=== PATIENT | female | born 1990 | race Caucasian/White ===

== ENCOUNTER 2016-08-09 07:22 | Emergency (ER) | payer OTHER ==
[~2016-08-09] VITALS: Ht 157.5 cm; Wt 72.6 kg
[2016-08-09] MEDS ORDERED: SPRINTEC 28 DA1 EACH PO (07:59)
[2016-08-09] MEDS ORDERED: ZOLOFT100 M1 PO (07:59)
--- NOTE | 2016-08-09 08:27 | ED HAND/WRIST INJURY COMPLAINT ---
History of Present Illness General Chief Complaint: Hand or Wrist Injury Stated Complaint: " PER PT LT WRIST INJURED, WORKERS COMP" Source: patient Exam Limitations: no limitations Vital Signs & Intake/Output Vital Signs & Intake/Output Vital Signs Date Time Temp Pulse Resp B/P B/P Pulse O2 O2 Flow FiO2 Mean Ox Delivery Rate 08/10 911 97.0 80 18 115/72 96 Room Air 08/09 07 97.2 75 20 122/77 98 Room Air Allergies Coded Allergies: NO KNOWN ALLERGIES (08/20/13) Reconcile Medications Norgestimate-Ethinyl Estradiol (Sprintec 28 Day Tablet) 0.25 MG-35 MCG TABLET 1 TAB PO DAILY BC (Reported) Sertraline HCl (Zoloft) 100 MG TABLET 1 TAB PO DAILY MENTAL HEALTH (Reported) Triage Note: PT TO ED C/O LEFT WRIST PAIN. 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 C/O BURNING PAIN TO LEFT WRIST. Triage Nurses Notes Reviewed? yes Occurred: just prior to arrival Duration: minute(s):, constant, continues in ED Timing: recent history Injury Environment: home Pain/Injury Location: Left: Wrist. Method of Injury: unknown No Modifying Factors: none : No Patient currently breastfeeds: No HPI: 26-year-old female comes into emergency room for further evaluation of left wrist pain. 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 The patient went to extubate is a herself. The patient went to grab him from stopping and he grabbed onto her left wrist. Patient reports that she now feels pain in the left wrist. Denies any falls or trauma. Patient has full range of motion. Denies any elbow injury. Denies any other associated symptoms. (VINOD STEARNS) Past History Travel History Traveled to [place] past 21 day No Medical History Any Pertinent Medical History? none Surgical History Surgical History: non-contributory Psychosocial History What is your primary language Tongan Tobacco Use: Never used ETOH Use: denies use Illicit Drug Use: denies illicit drug use Family History Hx Contributory? No (VINOD STEARNS) Review of Systems Review of Systems Constitutional: Reports: no symptoms. EENTM: Reports: no symptoms. Respiratory: Reports: no symptoms. Cardiovascular: Reports: no symptoms. GI: Reports: no symptoms. Genitourinary: Reports: no symptoms. Musculoskeletal: Reports: see HPI. Skin: Reports: no symptoms. Neurological/Psychological: Reports: no symptoms. Hematologic/Endocrine: Reports: no symptoms. Immunologic/Allergic: Reports: no symptoms. All Other Systems: Reviewed and Negative (VINOD STEARNS) Physical Exam Physical Exam General Appearance: well developed/nourished, mild distress Head: atraumatic Eyes: Bilateral: normal appearance. Ears, Nose, Throat: normal ENT inspection, hearing grossly normal Neck: normal inspection Cardiovascular/Respiratory: no respiratory distress Back: normal inspection Wrist Left: normal range of motion, soft tissue tenderness, no bruising,point tenderness over the radius Hand Left: normal inspection, normal range of motion Hand Right: normal inspection Neurologic/Tendon: normal sensation, normal motor functions, normal tendon functions, responds to pain, no evidence tendon injury, no pulse deficit Skin: intact, normal color, warm/dry Lymphatic: no anterior cervical beth (VINOD STEARNS) Progress Differential Diagnosis: cellulitis, contusion, compartment syndrome, dislocation , felon, fracture, gout, septic arthritis, sprain, tenosynovitis Plan of Care: Orders Procedure Date/time Status Durable Medical Equipment 08/09 914 Active Diagnostic Imaging: Viewed by Me: Radiology Read. Discussed w/RAD: Radiology Read. Radiology Impression: SERVICE DATE: 08/09/16 EXAM TYPE: RAD - XRY-WRIST COMPLETE-LEFT EXAMINATION: XR WRIST, LEFT CLINICAL INFORMATION: Pain over left wrist. COMPARISON: None TECHNIQUE: Left wrist, 4 views FINDINGS: The bones and soft tissues are normal. No fracture. Alignment is anatomic with normal joint spaces. No erosions or abnormal soft tissue calcifications. IMPRESSION: Normal left wrist. DICTATED BY: ISSAC BRAND MD DATE/TIME DICTATED:08/09/16841 SPOOLING SUPERVISOR:SMOOTH DATE/TIME TRANSCRIBED:08/09/16841 CONFIDENTIAL, DO NOT COPY WITHOUT APPROPRIATE AUTHORIZATION. (VINOD STEARNS) Departure Departure Disposition: HOME OR SELF CARE Condition: Stable Clinical Impression Primary Impression: Contusion of left wrist Referrals: LUCIA THORNE,ALEXANDRO Faustin (PCP/Family) Additional Instructions: Ice. Rest. Motrin. Follow-up with occupational medicine. Return if any concerns worsening symptoms. Limited weight lifting over the next 24 hours. Please go over all results of today's visit with your primary care doctor. Contact your primary care doctor to let them know you were here in the emergency room. There may be nonspecific findings which may not be related to your visit today here in the emergency room but may require further evaluation and chronic monitoring by your primary care doctor. If you had a laceration today the chance of foreign body always remains. You should follow-up with your primary care doctor for recheck in 3-5 days for a wound check. If you had an x-ray done there is a chance that a fracture could have been missed on initial read and you should follow-up with your primary care doctor for repeat x-rays if symptoms persist. If your blood pressure was elevated here in the emergency room please have rechecked by her primary care doctor within the next 48 hours by your primary care doctor. If you were prescribed a narcotic here in the emergency room or any type of controlled substances you're not allowed to drive while taking this medication or operate any type of heavy machinery. Narcotics can make you feel lightheaded dizziness nausea and can cause constipation. You may need to picker machine operator a stool softener. Thank you for choosing [facility] emergency room. Please return to the emergency room immediately if you have any other concerns worsening of symptoms. Departure Forms: Customer Survey [employer] [facility] General Discharge Information (VINOD STEARNS) PA/TRIAGE REGISTERED NURSE Co-Sign Statement Statement: ED Attending supervision documentation- [] I saw and evaluated the patient. I have also reviewed all the pertinent lab results and diagnostic results. I agree with the findings and the plan of care as documented in the PA's/TRIAGE REGISTERED NURSE's documentation. x I have reviewed the ED Record and agree with the PA's/TRIAGE REGISTERED NURSE's documentation. [] Additions or exceptions (if any) to the PAs/TRIAGE REGISTERED NURSE's note and plan are summarized below: [] (ARPIT THORNE,SELWYN)
--- NOTE | 2016-08-09 08:46 | RADIOLOGY REPORT ---
EXAMINATION: XR WRIST, LEFT CLINICAL INFORMATION: Pain over left wrist. COMPARISON: None TECHNIQUE: Left wrist, 4 views FINDINGS: The bones and soft tissues are normal. No fracture. Alignment is anatomic with normal joint spaces. No erosions or abnormal soft tissue calcifications. IMPRESSION: Normal left wrist.
[2016-08-09 09:12] VITALS: BP 115/72
== END 2016-08-09 09:28 ==
LOC: ERH 07:22
DX: X58.XXXA Exposure to other specified factors, initial encounter (principal); Y92.230 Patient room in hospital as the place of occurrence of the external cause; Y93.9 Activity, unspecified
CPT/HCPCS: 73110-LT